=== PATIENT | female | born 2000 | race American Indian/Alaskan Native ===

== ENCOUNTER 2018-04-08 16:40 | Observation (INO) | payer MEDICAID ==
[2018-04-08 14:21] VITALS: BMI 28.4
[2018-04-08] MEDS ORDERED: Magnesium Sul 40GM/1L SW 40 GM/1,000 ML ML IV ONE (18:03)
[2018-04-08] MEDS ORDERED: Lactated Ringer's 1,000 ML IV SCH (18:15)
[2018-04-08 22:23] LABS: URIC ACID 3.7 mg/Dl (2.2-7.5)
[2018-04-08 22:25] LABS: BARBITURATES, UR NEGATIVE (NEGATIVE); BENZODIAZEPINES, UR NEGATIVE (NEGATIVE); OPIATES, UR NEGATIVE (NEGATIVE); PHENCYCLIDINE, UR NEGATIVE (NEGATIVE)
--- NOTE | 2018-04-09 10:37 | MRI ---
Date of service: 04/09/2018 PROCEDURE: MRI BRAIN WITHOUT CONTRAST HISTORY: seizure COMPARISON: None available. TECHNIQUE: Multiplanar, multisequence MR images of the brain were obtained without intravenous contrast enhancement. FINDINGS: HEMORRHAGE: None DWI: No evidence of an acute or early subacute infarction. BRAIN PARENCHYMA: Intrinsic signal throughout the chahal and white matter structures above below the tentorium appears within normal limits including the brainstem. There is no mass effect, parenchymal edema or loss of the corticomedullary differentiation. Pituitary gland superior margins appear convex cephalad which is not unusual in young patients. No gross mass appreciable. Mesial temporal lobe subsegments appear unremarkable. No definite MR pattern suggest mesial temporal sclerosis bilaterally. Midline brain anatomy appears within normal limits including the corpus callosum, brainstem and craniocervical junction. There is no suspicious extra-axial fluid collection identified. VENTRICLES: Unremarkable. No hydrocephalus. CRANIUM: Unremarkable. ORBITS: Grossly unremarkable. PARANASAL SINUSES/MASTOIDS: Mild multifocal ethmoid sinus disease appreciated incidentally. VASCULAR SYSTEM: Skull base flow voids intact. OTHER FINDINGS: None. IMPRESSION: Unremarkable non contrast enhanced MRI of the brain.
--- NOTE | 2018-04-09 11:07 | OBADHP ---
Datetime: 04/08/2018 17:05 Admit Comment, IP Provider: 18 y/o female at 34.3 wk GA w/ no pmhx transferred from [facility] to [facility] w/ after becoming unresponsive earlier today. Patient's mother reports that patient was seated in a passenger seat in a car when she became unresponsive, drooling, tensed up, an d urinary incontinent. Patient became alert at the emergency room in [place] and woke up confused w/ no recollection of the episode. Patient denies history of seizure disorder. She denies drug use. She denies vaginal bleeding, vaginal fluid loss, and endorses movement. She was last sexually activ e 2 months ago. Ob: [facility] Pmhx: denies HomeRx: denies Famhx: Maternal grandmother w/ HTN SurgHx: D_C 2016 SocialHx: previous marijuana use. denies etoh and tobacco use Allergies: none ROS: negative except per HPI Physical Exam: Gen: no acute distress Neuro: Alert, oriented x3, CN II-XII intact Heart: S1/S2 present, RRR Lung: Normal breathing pattern, clear to auscultation bilaterally Abd: Gravid, normal bowel sounds, soft, non-tender Extremities: no calf tenderness, no swelling/erythema Assessment and Plan: 18 y/o female at 34.3 wk GA IUP Possible seizure vs. syncope Admit for observation Labs from [place] reviewed. She was started on mag there. Will cont. MagSulfate 2gm/hr. CBC and CMP: no significant findings Patient's BP wnl. Will check uric acid, LDH, U/A and continue to monitor vitals Urine tox screen negative Neurology consulted, appreciate recs, Dr. Gipson phoned, recommends EEG and MRI w/out contrast. Case discussed w/ attending, Dr. Scott Lauren, pgyi Addendum: I saw and examined patient at presentation. Pt with possible seizure activity, but unclear with h istory. Pt stable at this time. VSS and all labs WNL. Plan to continue MgSO4 and continue observat ion. Plan to order neurology consult for evaluation. heart tracing category 1. Discussed plan w ith patient and all patient questions answered. Pelvic Type - PN: Not Done Extremities - PN: Normal Abdomen - PN: Normal Back - PN: Not Done Breast - PN: Not Done Lungs - PN: Normal Heart - PN: Normal Thyroid - PN: Normal Neurologic - PN: Normal HEENT - PN: Normal General - PN: Normal Gestation - Est Wks by US: 34.3 IP Hx Assessment: The History has been Reviewed and is Current Vital Signs Provider: Reviewed; Within Normal Limits IP Chief Complaint: Other NICHD Decel Fetus A IP Provider: None Genitourinary Exam: Not Done DTRs - PN: Not Done IP Adm Impression: , intrauterine IP Admit Plan: Admit to unit; Observation/Evaluation
--- NOTE | 2018-04-09 15:05 | PCM.EEG ---
Electroencephalogram Report - Electroencephalogram Report Procedure Date: 04/09/18 Medication: Magensium Sulfate Interpretation: Technical Information: This was a 16 -channel EEG, 1-channel EKG routine EEG performed using an [employer] machine. Electrodes were applied using the 10/20 international placement system. Start 11;54 End; 12;24 Total 30 min Clinical Information: Seizure. During resting wakefulness there was a symmetric posterior dominant rhythm at 8.5-9.5 Hz, 30-50 uV, which was reactive to eye opening and closing. Drowsiness seen at 12;19 was associated with fragmentation of the posterior dominant rhythm and with slow roving eye movements. Light sleep was not recorded. Hyperventilation was not performed. Photic stimulation was performed and there were no changes on the record. Focal abnormality; none ECG was associated with a sinus rhythm. Impression: This is a normal awake and drowsy electroencephalogram.
--- NOTE | 2018-04-09 15:15 | CP.PCM.CON ---
History of Present Illness - History of Present Illness History of Present Illness: Neurology Consultation Note: Consult requested by Dr. Chavez Ms. Rdidle is a 18-year-old woman who is currently 34 weeks and was witnessed having a seizure in the car. She was brought in to the ED. She was not hypertensive and labs were essentially normal. She was started on magnesium sulfate. She is currently at her baseline with no complaints. Review of Systems - Constitutional Constitutional: As Per HPI - EENT Eyes: absent: As Per HPI, Blind Spots, Blurred Vision, Change in Vision, Decreased Night Vision, Diplopia, Discharge, Dry Eye, Exophthalmos, Floaters, Irritation, Itchy Eyes, Loss of Peripheral Vision, Pain, Photophobia, Requires Corrective Lenses, Sees Flashes, Spots in Vision, Tunnel Vision, Other Visual Disturbances, Loss of Vision, Other Ears: absent: As Per HPI, Decreased Hearing, Ear Discharge, Ear Pain, Tinnitus, Abnormal Hearing, Disequilibrium, Dizziness, Other Nose/Mouth/Throat: absent: As Per HPI, Epistaxis, Nasal Congestion, Nasal Discharge, Nasal Obstruction, Nasal Trauma, Nose Pain, Post Nasal Drip, Sinus Pain, Sinus Pressure, Bleeding Gums, Change in Voice, Dental Pain, Dry Mouth, Dysphagia, Halitosis, Hoarsness, Lip Swelling, Mouth Lesions, Mouth Pain, Odynophagia, Sore Throat, Throat Swelling, Tongue Swelling, Facial Pain, Neck Pain, Neck Mass, Other - Cardiovascular Cardiovascular: absent: As Per HPI, Acrocyanosis, Chest Pain, Chest Pain at Rest, Chest Pain with Activity, Claudication, Diaphoresis, Dyspnea, Dyspnea on Exertion, Edema, Irregular Heart Rhythm, Pain Radiating to Arm/Neck/Jaw, Leg Edema, Leg Ulcers, Lightheadedness, Orthopnea, Palpitations, Paroxysmal Noctu rnal Dyspnea, Pedal Edema, Radiating Pain, Rapid Heart Rate, Slow Heart Rate, Syncope, Other - Respiratory Respiratory: absent: As Per HPI, Cough, Dyspnea, Hemoptysis, Dyspnea on Exertion, Wheezing, Snoring, Stridor, Pain on Inspiration, Chest Congestion, Excessive Mucous Production, Change in Mucous Color, Pain with Coughing, Other - Gastrointestinal Gastrointestinal: absent: As Per HPI, Abdominal Pain, Belching, Bloating, Change in Bowel Habits, Change in Stool Character, Coffee Ground Emesis, Constipation, Cramping, Diarrhea, Dyspepsia, Dysphagia, Early Satiety, Excessive Flatus, Fecal Incontinence, Heartburn, Hematemesis, Hematochezia, Loose Stools, Melena, Nausea, Odynophagia, Temesmus, Vomiting, Other - Musculoskeletal Musculoskeletal: absent: As Per HPI, Abnormal Gait, Arthralgias, Atrophy, Back Pain, Deformity, Joint Swelling, Limited Range of Motion, Loss of Height, Muscle Cramps, Muscle Weakness, Myalgias, Neck Pain, Numbness, Radiating Pain into Limb, Stiffness, Tingling, Other - Integumentary Integumentary: absent: As Per HPI, Acne, Alopecia, Bleeding Lesions, Change in Hair, Change in Nails, Change in Pigmentation, Changing Lesions, Dry Skin, Erythema, Furuncle, Hirsutism, Lesions, New Lesions, Non-Healing Lesions, Photosensitivity, Pruritus, Rash, Skin Pain, Skin Ulcer, Sores, Striae, Swelling, Unusual Bruising, Wounds, Jaundice, Other - Neurological Neurological: As Per HPI - Psychiatric Psychiatric: absent: As Per HPI, Abnormal Sleep Pattern, Anhedonia, Anxiety, Auditory Hallucinations, Behavioral Changes, Change in Appetite, Change in Libido, Confusion, Depression, Difficulty Concentrating, Hallucinations, Homicidal Ideation, Hopelessness, Irritability, Memory Loss, Mood Swings, Panic Attacks, Paranoia, Suicidal Ideation, Visual Hallucinations, Tactile Hallucinations, Other - Endocrine Endocrine: absent: As Per HPI, Change in Body Appearance, Change in Libido, Cold Intolorance, Deepening of Voice, Excessive Sweating, Fatigue, Flushing, Heat Intolorance, Increase in Ring/Shoe/Hat Size, Palpitations, Polydipsia, Polyphagia, Polyuria, Other - Hematologic/Lymphatic Hematologic: absent: As Per HPI, Easy Bleeding, Easy Bruising, Lymphadenopathy, Other Past Patient History - Infectious Disease Hx of Infectious Diseases: None - Past Social History Smoking Status: Current Some Days Smoker - CARDIAC Hx Cardiac Disorders: No - PULMONARY Hx Respiratory Disorders: No - NEUROLOGICAL Hx Neurological Disorder: No - HEENT Hx HEENT Problems: No - ENDOCRINE/METABOLIC Hx Endocrine Disorders: No - HEMATOLOGICAL/ONCOLOGICAL Hx Blood Disorders: No - INTEGUMENTARY Hx Dermatological Problems: No - MUSCULOSKELETAL/RHEUMATOLOGICAL Hx Musculoskeletal Disorders: No - GASTROINTESTINAL Hx Gastrointestinal Disorders: No - GENITOURINARY/GYNECOLOGICAL Hx Genitourinary Disorders: No - PSYCHIATRIC Hx Psychophysiologic Disorder: No Hx Substance Use: No - SURGICAL HISTORY Hx Orthopedic Surgery: Yes (fracture right arm) - ANESTHESIA Hx Anesthesia: Yes Meds Allergies/Adverse Reactions: Allergies Allergy/AdvReac Type Severity Reaction Status Date / Time No Known Allergies Allergy Verified 09/12/17 00:23 - Medications Medications: Current Medications Lactated Ringer's (Lactated Ringer's) 1,000 mls @ 75 mls/hr IV .[id number] MONSE Last Admin: 04/08/18 18:43 Dose: 75 mls/hr Physical Exam - Constitutional Appears: Well - Head Exam Head Exam: ATRAUMATIC, NORMAL INSPECTION, NORMOCEPHALIC - Eye Exam Eye Exam: EOMI, Normal appearance, PERRL Pupil Exam: NORMAL ACCOMODATION, PERRL - ENT Exam ENT Exam: Mucous Membranes Moist, Normal Exam - Neck Exam Neck exam: Positive for: Normal Inspection - Respiratory Exam Respiratory Exam: Clear to Auscultation Bilateral, NORMAL BREATHING PATTERN - Cardiovascular Exam Cardiovascular Exam: REGULAR RHYTHM, +S1, +S2 - GI/Abdominal Exam GI & Abdominal Exam: Normal Bowel Sounds, Soft. absent: Tenderness - Extremities Exam Extremities exam: Positive for: normal inspection - Back Exam Back exam: NORMAL INSPECTION - Neurological Exam Neurological exam: Alert, CN II-XII Intact, Normal Gait, Oriented x3, Reflexes Normal - Psychiatric Exam Psychiatric exam: Normal Affect, Normal Mood - Skin Skin Exam: Dry, Intact, Normal Color, Warm Results - Labs Labs: Laboratory Results - last 24 hr 04/08/18 04/08/18 22:00 22:00 Uric Acid 3.7 Lactate Dehydrogenase 302 L Urine Opiates Screen Negative Urine Methadone Screen Negative Ur Barbiturates Screen Negative Ur Phencyclidine Scrn Negative Ur Amphetamines Screen Negative U Benzodiazepines Scrn Negative U Oth Cocaine Metabols Negative U Cannabinoids Screen Negative Assessment & Plan (1) Seizure Assessment and Plan: This is a first time seizure. I reviewed the MRI and it was normal. Her EEG was also normal. No treatment is indicated at this time. It is unlikely to be eclampsia since no other related findings are present. Will defer to industrial electrician journeyman for choice of early delivery. Thank you for this consultation. Status: Acute
--- NOTE | 2018-04-09 19:19 | OBPN ---
Datetime: 04/09/2018 13:24 FHR - Baseline A Provider: 120 IP Fetus A Comments: Reactive NST Gestation - Est Wks by US: 34.4 IP Progress Note Comment: S: Patient feels well this morning, no complaints. Denies MOCK, chest pain, SOB or any seizure-like movements/activity. O: Vitals reviewed Gen - alert, oriented Resp - nonlabored respirations CV - RRR Neuro - no focal deficits MRI brain - unremarkable EEG - pending A/P: 18 year old at 34.4. transferred from [place] for suspicion of possible seizure-like act ivity. - MRI brain done and WNL - EEG is in progress and will be read this afternoon - Patient will be seen by Neurology today - We can stop Mg at this time Katiuska Hopkins MD OB Fellow OB Hospitalist note: Sing out rec'd this morning about [facility]. She was brought from [facility] [place] 34w for questionable seizure. She was on MgSO4...but cleared by neurology service. Her BP and labs rev'd.. .I spoke with her primary OBGYN at [facility]. She had not followed up with her OB mid mar as scheduled. Patient admits thst she was supposed to take care of paperwork with 'welfare office' for amonth but didn't. She called and scheduled appt in 2w. Also, we faxed records to [facility]. Echo Amin and Nikko will follow. BARRIE NICHD Accel Fetus A IP Provider: [id number] NICHD Variability Prov Fetus A: Moderate 6-25bpm NICHD Decel Fetus A IP Provider: None Datetime: 04/08/2018 17:05 Vital Signs Provider: Reviewed; Within Normal Limits
--- NOTE | 2018-04-09 19:19 | OBDCSUM ---
Datetime: 04/09/2018 16:08 Discharged to, Provider: Home Follow up at, Provider: [facility] Disch Instr Activity: Normal activity Disch Instr Diet: Regular Discharge Time: 04/09/2018 16:09 Follow up in weeks, Provider: April 27, 2018 at 10am Disch Referrals: None Discharge Diagnosis Prov Other: vasovagal vs seizure episide 34w
[2018-04-09 22:40] VITALS: BP 110/78; PULSE 77; RESP 16; TEMP 98.2; O2SAT 100
== END 2018-04-09 16:08 | disposition home or self-care (01) ==
LOC: H.EROB2 16:40 → H.L&D 17:50
PROVIDERS: ADMIT Obstetrics & Gynecology; ATTEND Obstetrics & Gynecology
DX: O99.353 Diseases of the nervous system complicating pregnancy, third trimester (principal); O99.333 Smoking (tobacco) complicating pregnancy, third trimester; F17.210 Nicotine dependence, cigarettes, uncomplicated; G40.909 Epilepsy, unspecified, not intractable, without status epilepticus; Z3A.34 34 weeks gestation of pregnancy
CPT/HCPCS: 70551; 80324; 80345; 80346; 80349; 80353; 80358; 80361; 83615; 83992; 84550; 99285; G0378; J7120